=== PATIENT | male | born 1945 | race Caucasian/White ===

== ENCOUNTER 2020-06-07 10:47 | Emergency (ER) | payer MEDICARE, BC | END 2020-06-07 11:40 | disposition home or self-care (01) | LOC: BURERS 10:47 | DX: S20.211A Contusion of right front wall of thorax, initial encounter (principal); J44.9 Chronic obstructive pulmonary disease, unspecified; M25.521 Pain in right elbow; I25.10 Atherosclerotic heart disease of native coronary artery without angina pectoris; E11.9 Type 2 diabetes mellitus without complications; E78.5 Hyperlipidemia, unspecified; I10 Essential (primary) hypertension; F17.210 Nicotine dependence, cigarettes, uncomplicated; Z79.84 Long term (current) use of oral hypoglycemic drugs; W18.30XA Fall on same level, unspecified, initial encounter | CPT/HCPCS: 71046 ==